=== PATIENT | female | born 1955 | race Caucasian/White ===

== ENCOUNTER 2022-09-20 20:56 | Emergency (ER) | payer MEDICARE, OTHER ==
[~2022-09-20] VITALS: Ht 162.6 cm; Wt 105.2 kg
[2022-09-20 21:00] VITALS: BP_SYST 158
[2022-09-21] MEDS ORDERED: ACETAMINOPHEN 325 MG TABLET PO ONE (01:15)
[2022-09-21] MEDS ORDERED: FAMOTIDINE PF 20 MG/2 ML VIAL IVP ONE (01:15)
[2022-09-21] MEDS ORDERED: NACL 0.9% 1,000 ML IV ONE (01:15)
[2022-09-21 01:52] LABS: BASOPHILS % (AUTO) 0.3 % (0.0-2.0); EOSINOPHILS # (AUTO) 0.1 K/uL (0.0-0.4); LYMPHOCYTES # (AUTO) 1.2 K/uL (1.0-5.5); LYMPHOCYTES % (AUTO) 11.7 % (20.5-51.5); NEUTROPHILS # (AUTO) 8.2 K/uL (1.8-7.7)
[2022-09-21 02:09] LABS: EOSINOPHILS % (AUTO) 1.1 % (0.0-4.0); HEMATOCRIT 22.5 % (36-48); MEAN CORPUSCULAR HEMOGLOBIN 20 pg (27-31); MEAN CORPUSCULAR HGB CONC 31 % (32-36); MEAN CORPUSCULAR VOLUME 64 fL (79.0-98.0); MONOCYTES # (AUTO) 0.7 K/uL (0.0-1.0); MONOCYTES % (AUTO) 6.8 % (1.7-9.3); NEUTROPHILS % (AUTO) 80.1 % (40.0-70.0); PLATELET COUNT (AUTO) 290 K/uL (130-430); RED BLOOD CELL COUNT(AUTO) 3.52 MIL/uL (4.2-6.2); RED CELL DISTRIBUTION WIDTH 21.1 % (9.0-15.0); WHITE BLOOD COUNT (AUTO) 10.2 K/uL (4.8-10.8)
[2022-09-21 02:15] LABS: HEMOGLOBIN 6.9 g/dL (12.0-16.0)
[2022-09-21 02:25] LABS: ANION GAP 12 (5-15); CALCIUM 8.1 mg/dL (8.4-11.0); CHLORIDE 97 mmol/L (98-107); GLUCOSE 148 mg/dL (70-99); UREA NITROGEN, BLOOD 14 mg/dL (8-21)
[2022-09-21 02:33] LABS: ALANINE AMINOTRANSFERASE 21 U/L (12-78); ALBUMIN 3.3 g/dL (3.4-4.8); ASPARTATE AMINOTRANSFERASE 20 U/L (10-37); TOTAL BILIRUBIN 0.5 mg/dL (0.0-1.0)
[2022-09-21 02:40] LABS: GFR AFRICAN AMERICAN 71 mL/min (>90)
[2022-09-21] MEDS ORDERED: DIPHENHYDRAMINE INJ 50 MG/ML VIAL IVP ONE ×2 (04:45→05:50)
[2022-09-21 11:25] VITALS: BP_SYST 108
== END 2022-09-21 11:25 | disposition short-term general hospital (02) ==
LOC: SED 20:56
DX: R07.89 Other chest pain (principal); R10.84 Generalized abdominal pain; D64.9 Anemia, unspecified; R06.02 Shortness of breath; J45.909 Unspecified asthma, uncomplicated; I10 Essential (primary) hypertension; Z79.899 Other long term (current) drug therapy; Z20.822 Contact with and (suspected) exposure to COVID-19; V49.40XA Driver injured in collision with unspecified motor vehicles in traffic accident, initial encounter; Y93.89 Activity, other specified; Y92.89 Other specified places as the place of occurrence of the external cause; Y99.8 Other external cause status
CPT/HCPCS: 99291; 87426; 80053; 83880; 85025; 86886; 86900; 86901; 84484; 86920; 36415; 82272; 71260; 96374; 71045; 96361; 96375; 93005; 76376; 74177; 96376; P9021; J1200; J3490; Q9967 ×2; J7030